=== PATIENT | female | born 1990 ===

== ENCOUNTER → 2024-06-05 10:12 | Outpatient (REF) | payer BC, SELFPAY | LOC: RAD 10:12 | PROVIDERS: ATTENDING PHYSICIAN Internal Medicine Cardiovascular Disease; FAMILY PHYSICIAN Family Medicine | DX: R07.89 Other chest pain (principal); I49.3 Ventricular premature depolarization; R00.2 Palpitations; R00.0 Tachycardia, unspecified; R06.09 Other forms of dyspnea; R07.9 Chest pain, unspecified; Z82.49 Family history of ischemic heart disease and other diseases of the circulatory system; I49.1 Atrial premature depolarization | CPT/HCPCS: 75574; Q9967 ==